=== PATIENT | female | born 1950 | race African-American/Black ===

== ENCOUNTER 2017-11-18 15:24 | Inpatient (IN) | payer OTHER ==
[~2017-11-18] VITALS: Ht 160 cm; Wt 77.1 kg
--- NOTE | ~2017-11-18 | HC ---
[facility] [place] [address] CONSULTATION Name: GIO PAIZBULL SOLAKEVIN Room #: 422-P [facility] IN M.R.#: [id number] Admission: 11/18/17 Attend Phys: Tai Donaldson MD Discharge: 11/21/17 Date of : 46 Report #: [id number] THIS REPORT FOR: //name// CC: Margarita Donaldson DATE OF SERVICE: 11/19/2017 HISTORY OF PRESENT ILLNESS: This is a 67-year-old female patient who was evaluated by me for altered mental status. I talked to Dr. Donaldson earlier today. I talked to him again this evening. I talked to the nurses looking after this patient. She was admitted with progressively becoming worse and forgot to pay fails and could not remember anything. This started spontaneously without any trauma. Then, she got a dose of Ativan to get an MRI done and now she is completely back to normal. She thinks her strength is better. Her cognition is definitely better. She was not eating much in the past, but feels hungry at all. She has loss of weight. REVIEW OF SYSTEMS: Indicate that she said she was , then she the . Second , the prior moved in. She does have a history of depression in the past, but it has never become bad where she required inpatient management. She has lost significant amount of weight. On examination, it would appear that she has hyponatremia at one time. She was also hypercalcemic with ionized calcium. Her appetite is poor. She had failure to thrive. Her medication does include Wellbutrin as I understand from the record. She has a history of hypertension, tubal ligation, hemorrhoidectomy, hysterectomy. This was her relevant 14-point review of system. Presently, she is not complaining of any eye, ENT, cardiac, respiratory, , musculoskeletal, constitutional, dermatological, hematological, throat or allergic symptom associated with present symptomatology. Her prior history is as summarized above. PAST MEDICAL HISTORY: Positive for depression. FAMILY HISTORY: Negative for any early age stroke. SOCIAL HISTORY: She says she does not drink any alcohol. PHYSICAL EXAMINATION: NEUROLOGY: Indicate she is alert. She is responsive. She is oriented. She can follow simple commands. Her speech, concentration, fund of knowledge, and memory is at her baseline. Cranial nerve examination 2-12 is unremarkable. She does appear to have some cataract, so looking at the fundus is difficult, but I do not see any papilledema. She has symmetrical strength, sensation, reflexes, and tone in all 4 extremities. There is no cerebellar sign. There is no thyroid mass. She can hear and see well. She has no dysmorphic features of [address] [address] CONSULTATION Name: BULL LEBLANC Room #: 422-P [facility] IN M.R.#: [id number] Admission: 11/18/17 Attend Phys: Tai Donaldson MD Discharge: 11/21/17 Date of : 46 Report #: [id number] eyes, ears, and face. She is moderately built individual who does not have any dysmorphic features of eyes, ears and face. Her pulses are difficult to feel. She has no edema, cyanosis or jaundice. CARDIAC: Unremarkable. RESPIRATORY: No respiratory difficulty or rhonchi was noted. VITAL SIGNS: Blood pressure is 124/72, respirations 12, pulse is 63, and temperature is 98.3. LABORATORY DATA: WBC count is 7.8. Her sodium is 131, potassium is 3.0 and her calcium is 9.2. Last time, her ionized calcium was 5.46. IMPRESSION: This patient has some abnormalities in the blood, which can cause some altered mental status. She was hyponatremic and she has hypercalcemia at one time and that can cause some cognitive symptoms, but such a dramatic improvement after lorazepam is unusual. It occurs only when the person is having non-convulsive seizure and the history is not very typical for that. It is also possible that the patient's symptoms were psychogenic, especially because she has history of depression in the past. RECOMMENDATIONS: 1. EEG. 2. Ionized calcium. 3. I will suggest managing the sodium closely. 4. Looks like she was on antidepressants before she came in and we might like to consider starting her on antidepressant and avoid a possible seizure causing antidepressant. Thank you very much for this referral and if you have any question, please feel free to contact me. <ELECTRONICALLY SIGNED> By: Eusebio Santoro MD 11/23/17 1659 1823 0258 Eusebio Santoro MD /nt
--- NOTE | ~2017-11-18 | EKG ---
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1950 Requested By: Alexandru Lynch Order Number: [id number] MD: Jamey Munroe Measurements Intervals [place] Rate: 71 P: -48 FL: 106 QRS: 28 QRSD: 88 T: 11 QT: 454 QTc: 494 Interpretive Statements Sinus or ectopic atrial rhythm Supraventricular bigeminy Short FL interval Minimal ST depression, inferior leads Borderline prolonged QT interval Compared to ECG 09/01/2010 08:06:50 Ectopic atrial rhythm now present Atrial premature complex(es) now present Short FL interval now present ST (T wave) deviation now present Sinus rhythm no longer present Electronically Signed On 11-19-2017 8:20:49 CDT by Jamey Munroe [email or web address] <ELECTRONICALLY SIGNED> By: Jamey Munroe MD 11/19/17819 40 40 Jamey Munroe MD /EPI
--- NOTE | ~2017-11-18 | EEG ---
[facility] [place] [address] ELECTROENCEPHALOGRAM Name: BULL LEBLANC Room #: 422-P [facility] IN M.R.#: [id number] Admission: 11/18/17 Attend Phys: Tai Donaldson MD Discharge: 11/21/17 Date of : 46 Report #: [id number] THIS REPORT FOR: //name// CC: Margarita Donaldson DATE OF SERVICE: 11/20/2017 This patient is being evaluated for altered mental status. EEG was done by placing the electrode by standard 10-20 system of electrode placement. Both referential and sequential montages were used for recording. Background activity in this patient's EEG is about 11 Hz and 40 microvolt. This is a well-formed background activity. The patient became drowsy that is associated with bilateral slowing and vertex sharp waves. Photic stimulation was unremarkable. Throughout the record, no active epileptiform activity was noticed. IMPRESSION: This patient's electroencephalogram is within normal limits. Thank you very much for this referral. <ELECTRONICALLY SIGNED> By: Eusebio Santoro MD 11/23/17 1700 1354 1517 Eusebio Santoro MD /nt
[~2017-11-18 15:24] MED LIST: ATIVAN1 MG PO; BACTRIM DS TAB1 EACH PO; CELEXA 10 MG TA10 M1 PO; COLACE 100 MG100 MG; FLOMAX; FLOMAX PO; HYDROCHLOROTHIA25 M1 PO; HYDROCODONE-AP1 EACH PO; IBUPROFEN 800800 M1; MOM; NAPROSYN500 MG PO; OMEGA-31000 MG PO; SIMVASTATIN40 MG PO; TOPROL XL50 MG PO; TRAVATAN 0.004%5 ML OP; WELLBUTRIN SR150 MG PO; periactin
[2017-11-18 16:06] VITALS: BP 133/79
[2017-11-18 17:22] LABS: ABSOLUTE NEUTROPHILS 5.9 thou/uL (1.4-8.2); BASOPHILS 0.9 % (0.0-2.0); EOSINOPHILS 0.6 % (0.0-3.0); HEMATOCRIT 38.9 % (37.0-47.0); HEMOGLOBIN 13.1 gm/dL (12.0-15.0); MCH 27.4 pg (26.0-34.0); MCHC 33.7 g/dL (28.0-37.0); MCV 81.3 fL (80.0-100.0); PLATELET COUNT 271 thou/uL (150-400); POLYS 67.5 % (36.0-66.0); RBC 4.78 mil/uL (4.20-5.00); RDW 15.6 % (10.5-14.5); WBC 8.7 thou/uL (4.0-11.0)
[2017-11-18 17:30] LABS: CALCIUM 10.4 mg/dL (8.5-10.1); CREATININE 1.4 mg/dL (0.6-1.0)
[2017-11-18 17:37] LABS: POTASSIUM 2.4 mmol/L (3.5-5.1)
[2017-11-18 17:52] LABS: URINE BLOOD NEGATIVE (Negative); URINE CLARITY CLEAR; URINE COLOR YELLOW; URINE GLUCOSE-RANDOM* NEGATIVE (Negative); URINE KETONES 1+ (Negative); URINE LEUKOCYTES-REFLEX NEGATIVE (Negative); URINE NITRITE-REFLEX NEGATIVE (Negative); URINE PROTEIN (DIPSTICK) NEGATIVE (Negative); URINE SPECIFIC GRAVITY 1.025 (1.005-1.035); URINE UROBILINOGEN 0.2 E.U./dl (0.2-1.0)
[2017-11-18 17:53] LABS: ICTOTEST (BILI CONFIRMATORY) Negative (Negative); URINE BILIRUBIN NEGATIVE (Negative)
[2017-11-18] MEDS ORDERED: SIMVASTATIN10 MG PO (18:19)
[2017-11-18 18:25] LABS: URINE CREATININE-RANDOM* 214.7 mg/dL
[2017-11-18 18:51] LABS: MAGNESIUM 1.6 mg/dL (1.8-2.4); TROPONIN-I <0.06 ng/mL (<0.06)
[2017-11-18 19:34] LABS: CHOLESTEROL 195 mg/dL (<200); HDL CHOLESTEROL 27 mg/dL (>40); LDL CHOLESTEROL 138 mg/dL (<100); TC:HDL 7.2 Ratio (Not establshd); TRIGLYCERIDE 153 mg/dL (<150); VLDL 31 mg/dL (<40)
[2017-11-18 19:35] LABS: SERUM ASSESSMENT Clear
[2017-11-18 19:45] LABS: FOLIC ACID 9.5 ng/mL (8.6-58.9); TSH 0.407 uIU/mL (0.358-3.740)
[2017-11-18 20:12] VITALS: BP 105/79
[2017-11-18 20:50] VITALS: BP 134/72
[2017-11-19 06:01] LABS: HEMATOCRIT 34.7 % (37.0-47.0); HEMOGLOBIN 11.3 gm/dL (12.0-15.0); MCH 26.7 pg (26.0-34.0); MCHC 32.5 g/dL (28.0-37.0); MCV 82.2 fL (80.0-100.0); RBC 4.22 mil/uL (4.20-5.00); RDW 15.5 % (10.5-14.5); WBC 7.8 thou/uL (4.0-11.0)
[2017-11-19 06:16] LABS: ALBUMIN 2.8 g/dL (3.4-5.0); CALCIUM 9.5 mg/dL (8.5-10.1); TOTAL PROTEIN 6.6 g/dL (6.4-8.2)
[2017-11-19 06:19] LABS: CALCIUM 9.2 mg/dL (8.5-10.1); PHOSPHORUS 1.8 mg/dL (2.5-4.9)
[2017-11-19 07:10] VITALS: BP 124/72
[2017-11-19 09:29] LABS: MAGNESIUM 2.1 mg/dL (1.8-2.4); TROPONIN-I <0.06 ng/mL (<0.06)
[2017-11-19 15:17] LABS: AMYLASE 49 U/L (25-115); LIPASE 71 U/L (73-393)
[2017-11-19 19:56] VITALS: BP 97/51
[2017-11-20 01:10] LABS: GLYCOHEMOGLOBIN (HGB A1C) 6.8 % (4.8-5.6)
[2017-11-20 04:10] VITALS: BP 108/63
[2017-11-20 05:50] LABS: ABSOLUTE NEUTROPHILS 3.3 thou/uL (1.4-8.2); BASOPHILS 0.8 % (0.0-2.0); EOSINOPHILS 2.8 % (0.0-3.0); HEMATOCRIT 32.1 % (37.0-47.0); HEMOGLOBIN 10.7 gm/dL (12.0-15.0); LYMPHOCYTES 40.8 % (24.0-44.0); MCH 27.6 pg (26.0-34.0); MCHC 33.4 g/dL (28.0-37.0); MCV 82.6 fL (80.0-100.0); MONOCYTES 8.2 % (1.0-8.0); PLATELET COUNT 203 thou/uL (150-400); POLYS 47.4 % (36.0-66.0); RBC 3.89 mil/uL (4.20-5.00); RDW 16.1 % (10.5-14.5)
[2017-11-20 06:04] LABS: CALCIUM 9.2 mg/dL (8.5-10.1); CREATININE 0.8 mg/dL (0.6-1.0); POTASSIUM 3.1 mmol/L (3.5-5.1)
[2017-11-20 07:19] VITALS: BP 114/70
[2017-11-20 08:53] LABS: ANISOCYTOSIS 1+
[2017-11-20 08:54] LABS: HYPOCHROMASIA 1+
[2017-11-20 14:53] LABS: ALBUMIN 2.9 g/dL (3.4-5.0); DIRECT BILIRUBIN 0.3 mg/dL (<0.1-0.3); TOTAL BILIRUBIN 0.7 mg/dL (<0.1-1.0); TOTAL PROTEIN 6.6 g/dL (6.4-8.2)
[2017-11-20 21:30] VITALS: BP 117/74
[2017-11-21 03:55] VITALS: BP 98/68
[2017-11-21 07:28] VITALS: BP 103/66
[2017-11-21 09:19] LABS: ABSOLUTE NEUTROPHILS 2.9 thou/uL (1.4-8.2); HEMATOCRIT 33.3 % (37.0-47.0); HEMOGLOBIN 10.7 gm/dL (12.0-15.0); LYMPHOCYTES 38.7 % (24.0-44.0); MCH 26.6 pg (26.0-34.0); MCHC 32.1 g/dL (28.0-37.0); MCV 82.9 fL (80.0-100.0); MONOCYTES 8.1 % (1.0-8.0); PLATELET COUNT 212 thou/uL (150-400); POLYS 49.2 % (36.0-66.0); RBC 4.02 mil/uL (4.20-5.00); RDW 16.4 % (10.5-14.5); WBC 5.8 thou/uL (4.0-11.0)
[2017-11-21 09:28] LABS: ALBUMIN 2.9 g/dL (3.4-5.0); CALCIUM 9.1 mg/dL (8.5-10.1); CREATININE 0.8 mg/dL (0.6-1.0); POTASSIUM 4.7 mmol/L (3.5-5.1); TOTAL BILIRUBIN 0.6 mg/dL (<0.1-1.0); TOTAL PROTEIN 6.3 g/dL (6.4-8.2)
[2017-11-21] MEDS ORDERED: BACTRIM DS TAB1 EACH PO (15:19)
[2017-11-21] MEDS ORDERED: CENTRUM SILVER1 EAC4 PO (15:24)
[2017-11-21] MEDS ORDERED: VITAMIN B-1100 M1 PO (15:24)
[2017-11-21] MEDS ORDERED: FOLIC ACID1 MG PO (15:24)
[2017-11-21 15:42] VITALS: BP 98/68
== END 2017-11-21 16:10 | disposition home health service (06) | DRG 70 ==
LOC: ER 15:24 → EROBS 19:13 → 4E 19:13
PROVIDERS: Emergency Medicine; Hospitalist
DX: G93.41 Metabolic encephalopathy (principal); N17.0 Acute kidney failure with tubular necrosis; E43 Unspecified severe protein-calorie malnutrition; F32.9 Major depressive disorder, single episode, unspecified; I10 Essential (primary) hypertension; M17.0 Bilateral primary osteoarthritis of knee; E89.0 Postprocedural hypothyroidism; R62.7 Adult failure to thrive; F03.90 Unspecified dementia, unspecified severity, without behavioral disturbance, psychotic disturbance, mood disturbance, and anxiety; E87.6 Hypokalemia; E83.52 Hypercalcemia; E78.00 Pure hypercholesterolemia, unspecified; E86.0 Dehydration; R16.0 Hepatomegaly, not elsewhere classified; K86.9 Disease of pancreas, unspecified; R74.0 Nonspecific elevation of levels of transaminase and lactic acid dehydrogenase [LDH]; K76.9 Liver disease, unspecified; D18.09 Hemangioma of other sites; T50.2X5A Adverse effect of carbonic-anhydrase inhibitors, benzothiadiazides and other diuretics, initial encounter; Z90.710 Acquired absence of both cervix and uterus; Z88.6 Allergy status to analgesic agent; Z80.3 Family history of malignant neoplasm of breast; Z79.899 Other long term (current) drug therapy; Z68.30 Body mass index [BMI] 30.0-30.9, adult
CPT/HCPCS: 10183

== ENCOUNTER 2017-11-23 12:14 | Emergency (ER) | payer OTHER ==
[~2017-11-23] VITALS: Ht 160 cm; Wt 86.2 kg
--- NOTE | ~2017-11-23 | EKG ---
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 : 1950 Requested By: Luciana Rizvi Order Number: [id number] MD: Thierry Parish Measurements Intervals [place] Rate: 74 P: 47 PA: 162 QRS: 29 QRSD: 91 T: 37 QT: 401 QTc: 445 Interpretive Statements Sinus rhythm No significant abnormality Compared to ECG 11/18/2017 18:41:08 Ectopic atrial rhythm no longer present Atrial premature complex(es) no longer present ST (T wave) deviation no longer present Electronically Signed On 11-23-2017 16:39:28 CDT by Thierry Parish [email or web address] <ELECTRONICALLY SIGNED> By: Thierry Parish MD, [facility] 11/23/17 1639 1307 1307 Thierry Parish MD, [facility] /EPI
[~2017-11-23 12:14] MED LIST changes: +CENTRUM SILVER1 EAC4 PO; +FOLIC ACID1 MG PO; +SIMVASTATIN10 MG PO; +VITAMIN B-1100 M1 PO
[2017-11-23 13:19] LABS: ABSOLUTE NEUTROPHILS 5.8 thou/uL (1.4-8.2); BASOPHILS 0.7 % (0.0-2.0); EOSINOPHILS 1.5 % (0.0-3.0); HEMATOCRIT 32.6 % (37.0-47.0); LYMPHOCYTES 21.2 % (24.0-44.0); MCHC 33.7 g/dL (28.0-37.0); MCV 83.3 fL (80.0-100.0); MONOCYTES 5.7 % (1.0-8.0); PLATELET COUNT 237 thou/uL (150-400); POLYS 70.9 % (36.0-66.0); RBC 3.92 mil/uL (4.20-5.00); WBC 8.2 thou/uL (4.0-11.0)
[2017-11-23 13:24] LABS: AMP/METHAMP Negative (Negative); BARBITURATES Negative (Negative); BENZODIAZEPINES Negative (Negative); COCAINE Negative (Negative); METHADONE Negative (Negative); OPIATES Negative (Negative); PCP Negative (Negative)
[2017-11-23 13:31] LABS: ANION GAP 10 mmol/L (7-16); BUN 8 mg/dL (7-18); CALCIUM 9.5 mg/dL (8.5-10.1); CHLORIDE 103 mmol/L (98-107); CO2 24 mmol/L (21-32); CREATININE 1.1 mg/dL (0.6-1.0); GLUCOSE 138 mg/dL (74-106); POTASSIUM 4.5 mmol/L (3.5-5.1); SODIUM 137 mmol/L (136-145)
[2017-11-23 13:41] LABS: SGOT 46 U/L (15-37); SGPT 187 U/L (30-65); TOTAL BILIRUBIN 0.5 mg/dL (<0.1-1.0); TOTAL PROTEIN 7.1 g/dL (6.4-8.2); TROPONIN-I <0.06 ng/mL (<0.06)
[2017-11-23 14:17] LABS: URINE BILIRUBIN NEGATIVE (Negative); URINE BLOOD NEGATIVE (Negative); URINE CLARITY CLEAR; URINE COLOR YELLOW; URINE GLUCOSE-RANDOM* NEGATIVE (Negative); URINE KETONES NEGATIVE (Negative); URINE LEUKOCYTES-REFLEX NEGATIVE (Negative); URINE NITRITE-REFLEX NEGATIVE (Negative); URINE PROTEIN (DIPSTICK) NEGATIVE (Negative); URINE SPECIFIC GRAVITY 1.025 (1.005-1.035)
[2017-11-23 14:32] VITALS: BP 134/62
== END 2017-11-23 14:52 | disposition home or self-care (01) ==
LOC: ER 12:14
PROVIDERS: Student in an Organized Health Care Education/Training Program
DX: R40.4 Transient alteration of awareness (principal); I10 Essential (primary) hypertension; F32.9 Major depressive disorder, single episode, unspecified; M13.862 Other specified arthritis, left knee; M13.861 Other specified arthritis, right knee; E89.0 Postprocedural hypothyroidism; Z90.710 Acquired absence of both cervix and uterus; Z88.5 Allergy status to narcotic agent

== ENCOUNTER → 2017-12-08 | Outpatient (CLI) | payer OTHER ==
--- NOTE | ~2017-12-08 | EEG ---
[facility] [place] [address] ELECTROENCEPHALOGRAM Name: BULL LEBLANC Room #: [facility]..#: [id number] Admission: 12/08/17 Attend Phys: Eusebio Santoro MD Discharge: Date of : 46 Report #: [id number] THIS REPORT FOR: //name// CC: Margarita Santoro DATE OF SERVICE: 12/08/2017 This patient is being evaluated for the possibility of seizures. EEG was done by placing the electrode by standard 10-20 system of electrode placement. Both referential and sequential montages were used for recording. Background activity in this patient's EEG is about 11 Hz and 40 microvolt. This is a symmetrical activity. The patient became drowsy and that is associated with bilateral slowing. Photic stimulation is unremarkable. Throughout the record, no active epileptiform activity was noticed. IMPRESSION: This patient's EEG is within normal limit. Thank you very much for this referral. By: 1410 1438 Eusebio Santoro MD /nt
== END ==
LOC: CV 14:46
DX: R41.82 Altered mental status, unspecified (principal)